=== PATIENT | female | born 1940 | race Caucasian/White ===

== ENCOUNTER 2016-05-04 21:35 | Inpatient (IN) | payer BC, MEDICARE ==
--- NOTE | 2016-05-04 22:06 | ED Physician Chart ---
Chief Complaint/HPI - Patient Information Date Seen:: 05/04/16 Time Seen:: 21:45 Chief Complaint:: syncope History of Present Illness:: while walking in her house felt dizzy, had to hold on to furniture to keep from falling, then fell face down onto the bed. Unconscious but unsure for how long. After awakening took blood pressure as 83/45. Denies chest pain or shortness of breath. Allergies:: Allergies Allergy/AdvReac Type Severity Reaction Status Date / Time No Known Allergies Allergy Verified 05/04/16 21:43 Vitals:: Vital Signs - 8 hr 05/04/16 21:43 Temp 97.5 F HR 59 RR 18 BP 127/35 O2 Sat % 100 Historian:: Patient Review:: Nurse's Note Reviewed Review of Systems - Review of Systems General/Constitutional: No fever, No chills, Weakness Skin: No skin lesions Head: No headache Eyes: No loss of vision ENT: No earache Neck: No neck pain Cardio Vascular: No chest pain Pulmonary: No SOB GI: No nausea, No vomiting G/U: No dysuria Musculoskeletal: No bone or joint pain, No back pain, No muscle pain Endocrine: No polyuria, No polydipsia Psychiatric: No prior psych history Hematopoietic: No bruising Allergic/Immuno: No urticaria Neurological: Syncope, Dizziness Past Medical History - Past Medical History Past Medical History: DM, Other (cardiac arrhythmia) Family History: Heart disease, HTN Social History: Non Smoker, No Alcohol Surgical History: other (right mastectomy; cataract surgery right eye) Psychiatricy History: None Medication: Reviewed Family Medical History - Family Member Mother Hx Family Hypertension: Yes Physical Exam - Physical Examination General/Constitutional: Well-developed, well-nourished, Alert Head: Atraumatic Eyes: Lids, conjuctiva normal Other Eyes comments:: right eye s/p cataract surgery Skin: Nl inspection, No rash ENMT: External ears, nose nl, TM canals nl, Nasal exam nl, Lips, teeth, gums nl , Oropharynx nl, Tonsils nl Neck: No nuchal rigidity Respiratory: Nl effort/Exclusion, Clear to Auscultation, No Wheeze/Rhonchi/Rales Cardio Vascular: RRR, No murmur, gallop, rubs, NL S1 S2 GI: No tenderness/rebounding/guarding, No organomegaly, No hernia, Normal BS's, Nondistended, No mass/bruits : No CVA tenderness Extremities: Normal digits & nails Neuro/Psych: Alert/oriented, No focal deficits Misc: Normal back Labs/Radiology/EKG Results - Lab Results Comments:: Laboratory Results - last 24 hr 05/04/16 05/04/16 05/04/16 22:15 22:15 22:15 WBC 3.3 L RBC 3.70 L Hgb 10.9 L Hct 32.5 L MCV 87.7 MCH 29.4 MCHC Differential 33.6 RDW 12.8 Plt Count 97 L MPV 9.6 Neutrophils % 64.5 Lymphocytes % 22.1 Monocytes % 10.3 H Eosinophils % 2.6 Basophils % 0.5 Sodium 135 L Potassium 4.0 Chloride 99 Carbon Dioxide 27.1 Anion Gap 12.9 BUN 59 H Creatinine 1.3 H Est GFR ( Amer) TNP Est GFR (Non-Af Amer) TNP BUN/Creatinine Ratio 45.4 Glucose 234 H Calcium 9.5 Troponin I 0.02 B-Natriuretic Peptide 203.0 H - Radiology Results Results: CXR: calcification of aortic arch - EKG Interpretations Rhythm: ventricular pacemaker Rate: 61 Comments:: PAC ED Septic Shock - . Is Septic Shock (SBP<90, OR Lactate>4 mmol\L) present?: No - <6hrs of presentation: Vital Signs: Vital Signs - 8 hr 05/04/16 21:43 Temp 97.5 F HR 59 RR 18 BP 127/35 O2 Sat % 100 Reassessment (Disposition) - Reassessment Reassessment Condition:: Improved - Diagnosis Diagnosis:: syncope; dehydration; pancytopenia - Patient Disposition Admitted to:: Telemetry Admitting Medical Physician:: Paul Douglas Admitting Psych Physician:: Paul Douglas Condition at Disposition:: Stable, Improved
[2016-05-04 22:31] LABS: % BASOPHILS 0.5 % (0.0-2.0); % EOSINOPHILS 2.6 % (0.0-5.0); % LYMPHOCYTES 22.1 % (20.0-50.0); % MONOCYTES 10.3 % (2.0-10.0); % NEUTROPHILS 64.5 % (40.0-80.0); HEMATOCRIT 32.5 % (35.0-45.0); HEMOGLOBIN 10.9 gm/dL (11.7-16.1); MEAN CELL VOLUME 87.7 fl (81-100); MEAN CORPUSCULAR HEMOGLOBIN 29.4 pg (27.0-31.0); MEAN CORPUSCULAR HGB CONC 33.6 pg (28.0-36.0); MEAN PLATELET VOLUME 9.6 fl; NEUTROPHILE ABSOLUTE 2.2 Th/cmm (1.8-8.0); PLATELET COUNT 97 Th/cmm (150-400); RED CELL DISTRIBUTION WIDTH 12.8 % (11.5-20.0); WHITE BLOOD COUNT 3.3 Th/cmm (4.8-10.8)
[2016-05-04 22:44] LABS: ANION GAP 12.9 (7.0-16.0); BUN - UREA NITROGEN 59 mg/dL (7-25); BUN/CREATININE RATIO 45.4; CALCIUM SERUM 9.5 mg/dL (8.6-10.3); CARBON DIOXIDE 27.1 mEq/L (21.0-31.0); CHLORIDE 99 mEq/L (98-107); CREATININE - SERUM 1.3 mg/dL (0.6-1.2); GLUCOSE 234 mg/dL (70-105); SODIUM SERUM 135 mEq/L (136-145)
[2016-05-04] MEDS ORDERED: Sodium Chloride 0.9% 1,000 ML IV ONE (23:28)
[2016-05-04 23:32] LABS: URINE BILIRUBIN NEGATIVE (NEGATIVE); URINE BLOOD NEGATIVE (NEGATIVE); URINE COLOR YELLOW; URINE GLUCOSE (UA) NEGATIVE (NEGATIVE); URINE KETONE NEGATIVE (NEGATIVE); URINE PH 5.5; URINE PROTEIN NEGATIVE (NEGATIVE)
[2016-05-04 23:33] LABS: URINE BACTERIA MODERATE /hpf (NONE SEEN); URINE EPITHELIAL CELLS FEW /lpf (FEW); URINE RBC NONE SEEN /hpf (0-5)
[2016-05-05] MEDS: Sodium Chloride 0.9% 1,000 ML IV SCH ×2 (01:12→20:06)
[2016-05-05] MEDS: INSULIN ASPART SLIDING SCALE 100 UNITS/ML UNIT SUBQ SCH ×4 (06:54→20:41)
[2016-05-05 07:34] LABS: % EOSINOPHILS 1.7 % (0.0-5.0); % LYMPHOCYTES 14.9 % (20.0-50.0); % MONOCYTES 6.1 % (2.0-10.0); % NEUTROPHILS 77.3 % (40.0-80.0); HEMATOCRIT 34.2 % (35.0-45.0); HEMOGLOBIN 11.5 gm/dL (11.7-16.1); MEAN CELL VOLUME 86.6 fl (81-100); MEAN CORPUSCULAR HEMOGLOBIN 29.1 pg (27.0-31.0); MEAN CORPUSCULAR HGB CONC 33.5 pg (28.0-36.0); MEAN PLATELET VOLUME 10.6 fl; NEUTROPHILE ABSOLUTE 4.1 Th/cmm (1.8-8.0); PLATELET COUNT 93 Th/cmm (150-400); RED BLOOD COUNT 3.95 Mil/cmm (3.80-5.20); RED CELL DISTRIBUTION WIDTH 12.9 % (11.5-20.0)
[2016-05-05 07:37] LABS: ANION GAP 11.6 (7.0-16.0); BUN - UREA NITROGEN 53 mg/dL (7-25); CALCIUM SERUM 9.1 mg/dL (8.6-10.3); CARBON DIOXIDE 24.1 mEq/L (21.0-31.0); CHLORIDE 107 mEq/L (98-107); GLUCOSE 120 mg/dL (70-105); POTASSIUM SERUM 3.7 mEq/L (3.5-5.1); SODIUM SERUM 139 mEq/L (136-145); WHITE BLOOD COUNT 5.3 Th/cmm (4.8-10.8)
[2016-05-05] MEDS ORDERED: Morphine Sulfate 2 mg/mL 1mL Syr IVP PRN (08:52)
[2016-05-05] MEDS ORDERED: Non-Formulary Item 1 EA (Pravastatin Sodium [Pravastatin*] 40 MG) PO SCH (09:00)
[2016-05-05] MEDS ORDERED: Non-Formulary Item 1 EA (Losartan Potassium [Cozaar] 100 MG) PO SCH (09:00)
[2016-05-05] MEDS ORDERED: AMLODIPINE BESYLATE 2.5 MG PO SCH (09:00)
--- NOTE | 2016-05-05 09:46 | Diagnostic Imaging Report ---
CHEST X-RAY: AP view INDICATION: Syncope COMPARISON: None FINDINGS: Left chest wall pacemaker apparatus is noted with leads in the region of right atrium. Chronic changes are seen with no focal consolidation or pleural effusions. There may be right basal pleural thickening. Heart size is normal. Atherosclerosis is noted. Degenerative changes of the spine and shoulders are noted. There is evidence of old trauma to the left humerus. IMPRESSION: Chronic lung changes with no focal consolidation identified. Pacemaker noted. Atherosclerotic vascular disease.
--- NOTE | 2016-05-05 10:36 | History & Physical ---
CHIEF COMPLAINT: Syncope and fall. HISTORY OF PRESENT ILLNESS: The patient is a pleasant 75-year-old female who lives at home with her . Her is in hospice and is unable to take care of her. She has been experiencing worsening weakness. She has history of pacemaker and AFib as well. She is on warfarin. She has been experiencing severe dizziness and she fainted yesterday while she was in bed and she states she fell down and hit her face on the floor. She denies any chest pain, nausea, vomiting or diarrhea. She has been experiencing left knee pain as well from the fall. PAST MEDICAL HISTORY: Significant for diabetes, AFib, hypertension, breast cancer, status post right-sided mastectomy years ago per patient. SOCIAL HISTORY: She is retired. No history of alcohol, tobacco, or drug abuse. FAMILY HISTORY: Noncontributory. ALLERGIES: No known drug allergies. PAST SURGICAL HISTORY: She has had right-sided mastectomy. MEDICATIONS: All medications reviewed and reconciled. REVIEW OF SYSTEMS: GENERAL: Positive recent fatigue and worsening dizziness. HEENT: No recent head trauma or change in vision, taste, hearing, or smell. When she fell, she hit her face. She denies any head trauma. NEUROLOGIC: Positive for recent loss of consciousness when she fell, she had a syncopal episode. NECK: No recent tracheal deviation or JVD. CARDIOVASCULAR: She has history of AFib and hypertension. ABDOMEN: No recent pain or distention. GASTROINTESTINAL: Denies any nausea, vomiting or diarrhea. SKIN: No recent rashes. PSYCHIATRIC: No history of psychosis or hallucinations. ENDOCRINE: She has a history of diabetes. PHYSICAL EXAMINATION: VITAL SIGNS: Temperature is 97.5 degrees, heart rate is 65, respirations 18, blood pressure 135/58. Currently, no pain. O2 saturations 95% on room air. GENERAL: No acute distress. She is anxious. She feels weak. She also has pain in the left knee HEENT: Normocephalic, atraumatic. Pupils are reactive to light. The patient has some redness from the fall. NECK: Trachea is midline. No JVD. CARDIOVASCULAR: Regular rate and rhythm, but she has been going in and out of AFib on telemetry. ABDOMEN: Nontender, nondistended. SKIN: No rash. EXTREMITIES: 1+ edema in lower extremities. MUSCULOSKELETAL: She has unsteady gait. She also has intractable left knee pain. RESPIRATORY: Decreased breath sounds bilaterally. NEUROLOGIC: No evidence of acute stroke or seizure activity. LABORATORY DATA: Chest x-ray and bilateral carotid ultrasound have been ordered and are pending. White count is 3.3, hemoglobin is 10.9, and platelet count is 97,000. Sodium 135, potassium 4.0, chloride 99, bicarbonate 27.1, BUN ____, creatinine 1.3, glucose 234. Hemoglobin A1c 6.6. BNP is 203. UA is positive for moderate bacteria, leukocyte esterase is positive and wbc's are positive as well. ASSESSMENT: 1. Syncope. 2. Pancytopenia. 3. Urinary tract infection. 4. Diabetes mellitus, out of control. 5. Acute kidney injury. 6. Vasomotor nephropathy. 7. Atrial fibrillation. 8. Status post fall. 9. Unsteady gait. PLAN: The patient is being monitored in telemetry. Warfarin will be continued per Pharmacy. We will follow up on the PT and INR. Dr. Mahmood has been consulted for Cardiology. I will start her on Rocephin 1 g IV daily for UTI. Follow up on the cultures. I have ordered x-ray of the left knee. Continue fingerstick blood sugars and regular insulin sliding scale. JOB# [id number]
[2016-05-05] MEDS ORDERED: cefTRIAXone 1 GM in Sodium Chloride 0.9% 50 ML IV SCH (11:00)
[2016-05-05] MEDS: Atorvastatin Calcium 10 MG TAB PO SCH (11:03)
[2016-05-05] MEDS: Aspirin 81mg Chewable Tab PO SCH ×2 (11:04→11:16)
--- NOTE | 2016-05-05 11:17 | Diagnostic Imaging Report ---
Right knee 3 views Indication: pain Comparison: none Findings: Moderate degenerative changes are noted. Chondrocalcinosis is noted. No evidence of an acute fracture or joint effusion. Atherosclerotic vascular disease is noted. No focal soft tissue swelling. Impression: No evidence of an acute fracture. Moderate degenerative changes. Chondrocalcinosis. Atherosclerotic vascular disease. In the setting of trauma, if clinical symptoms persist and there is continued concern for an occult fracture, follow up exams in 5-7 days is suggested.
[2016-05-05 12:04] LABS: INR 3.05 (0.5-1.4); PROTHROMBIN TIME (TEST) 32.5 SECONDS (9.5-11.5)
--- NOTE | 2016-05-05 14:09 | Diagnostic Imaging Report ---
Carotid ultrasound HISTORY: Syncope COMPARISON: None Technique: Longitudinal and transverse sonographic sector images of the carotid arteries were obtained with doppler analysis. FINDINGS: Exam of the right-sided demonstrates intimal thickening and moderate atherosclerotic vascular disease. Exam of the left side demonstrates intimal thickening and moderate atherosclerotic vascular disease. The velocity and velocity ratios are within normal limits. Antegrade vertebral artery flow is demonstrated bilaterally. IMPRESSION: Moderate generalized atherosclerotic vascular disease. No evidence of hemodynamically significant stenosis.
--- NOTE | 2016-05-05 16:11 | Diagnostic Imaging Report ---
Head CT without intravenous contrast Indication: Syncope Comparison: None Technique: Axial images were obtained from the vertex to the skull base without IV contrast. Coronal reconstructions were made. Total DLP: [id number], [id number] FINDINGS: Images of the brain obtained without contrast demonstrate no acute hemorrhage. Cerebellar and cerebral atrophy is noted. Atherosclerosis is noted. No mass lesions identified. The ventricles and basal cisterns are patent. The pringle-white matter differentiation is preserved. There is no mass effect or midline shift. No skull fractures identified. No soft tissue swelling. The paranasal sinuses are clear. IMPRESSION: No CT evidence of an acute intracranial abnormality Cerebellar and cerebral atrophy Mild atherosclerosis.
[2016-05-05 18:25] VITALS: BP 110/53
--- NOTE | 2016-05-05 21:07 | Admit Criteria Form ---
Admit Criteria Forms - Admit Criteria Diagnosis: URINARY COMPLICATIONS Clinical Indications for Inpatient Care (Place 'X' for any and all applicable criteria): Ongoing inpatient care may be indicated for urinary complications with ANY ONE of the following: [X ]I. Urinary tract infection requiring inpatient care as indicated by ANY ONE of the following(8)(19)(20): [ ]a) Severe symptoms (eg, high fever, severe pain) [ ]b) Vomiting or dehydration requiring ongoing inpatient care [ X]c) IV antibiotic needs that cannot be managed at lower level of care [ ]d) Hemodynamic instability [ ]e) Obstruction of collecting system by stone or tumor [ ]II. Urinary retention requiring drainage or surgery (3)(4)(5)(17)(18) [ ]III. Renal failure (Use Renal Failure Criteria for further information.) [ ]IV. Oliguria(30) [ ]V. Post obstructive diuresis requiring close monitoring of urine output and intravenous compensation for excessive fluid losses(33) Extended stay beyond goal length of stay for primary condition may be needed until ALL of the following are present(3)(4)(5)(8): [ ]a) Renal function (creatinine) at baseline, or daily decreases in creatinine consistent with renal function return [ ]b) Voiding adequately or with urinary catheter or percutaneous suprapubic tube and management regimen in place that is performable at lower level of care. [ ]c) Urine output adequate [ ]d) Fever absent or resolving [ ]e) Infection absent or treatable at next level of care The original [employer] content created by [employer] has been revised. The portions of the content which have been revised are identified through the use of italic text or in bold, and [facility] has neither reviewed nor approved the modified material. All other unmodified content is copyright [employer] [employer] Please see references footnoted in the original [facility] edition 2016 Admit Criteria Met?: Yes
--- NOTE | 2016-05-06 03:56 | Consultation ---
The patient of Dr. Douglas. HISTORY AND PHYSICAL: This 75-year-old female patient who was at home, had syncopal episode. The patient had a fall in the bed. The patient did not have any injury. The patient had syncopal episode for few seconds. Following this, paramedics were called in and patient came to the Emergency Room. PAST MEDICAL HISTORY: The patient has history of sick sinus syndrome, atrial fibrillation, diabetes mellitus type 2, unsteady gait and osteoporosis. The patient also has right breast cancer with mastectomy. FAMILY HISTORY: Unremarkable. SOCIAL HISTORY: No history of smoking, alcohol abuse. ALLERGIES: No known allergies. PHYSICAL EXAMINATION: VITAL SIGNS: Blood pressure 130/80, pulse 70, respirations 20. HEAD: Normocephalic. No lumps or bumps. EYES: Pupils equal, reactive to light. Fundi show AV nicking, sclerae white, conjunctivae pink. NECK: Carotid 2+. Normal upstroke. JVD flat. Thyroid not palpable. Lymph nodes not palpable. CHEST: Shows ____ AP diameter. No kyphosis, scoliosis. LUNGS: Bilateral breath sounds. HEART: PMI fifth intercostal space with lateral to midclavicular line. S1, S2. No S3, S4. S1 irregular. Systolic murmur, grade 2/6, lower left sternal border without radiation. ABDOMEN: Soft. Liver, spleen not palpable. No organomegaly. Bowel sounds active. NEUROLOGIC: Unremarkable. EXTREMITIES: Peripheral pulses 2+. No pedal edema. CLINICAL IMPRESSION: 1.Syncope. 2.Atrial fibrillation, sick sinus syndrome with pacemaker. 3.Osteoporosis. 4.Prerenal azotemia. 5.Hypertension. 6.Right breast cancer with mastectomy. PLAN: The patient to have carotid duplex study, CAT scan of the brain complain and also Patient to have echocardiogram to evaluate left ventricular function. JOB# [id number]
[2016-05-06 05:57] LABS: % BASOPHILS 0.7 % (0.0-2.0); % EOSINOPHILS 4.5 % (0.0-5.0); % LYMPHOCYTES 12.2 % (20.0-50.0); % MONOCYTES 6.9 % (2.0-10.0); % NEUTROPHILS 75.7 % (40.0-80.0); HEMATOCRIT 35.8 % (35.0-45.0); HEMOGLOBIN 12.1 gm/dL (11.7-16.1); MEAN CELL VOLUME 87.8 fl (81-100); MEAN CORPUSCULAR HEMOGLOBIN 29.6 pg (27.0-31.0); MEAN CORPUSCULAR HGB CONC 33.7 pg (28.0-36.0); MEAN PLATELET VOLUME 10.2 fl; NEUTROPHILE ABSOLUTE 4.6 Th/cmm (1.8-8.0); PLATELET COUNT 98 Th/cmm (150-400); RED BLOOD COUNT 4.08 Mil/cmm (3.80-5.20); RED CELL DISTRIBUTION WIDTH 13.1 % (11.5-20.0)
[2016-05-06 06:09] LABS: ANION GAP 10.3 (7.0-16.0); BUN - UREA NITROGEN 38 mg/dL (7-25); CALCIUM SERUM 9.4 mg/dL (8.6-10.3); CARBON DIOXIDE 27.1 mEq/L (21.0-31.0); CHLORIDE 107 mEq/L (98-107); GLUCOSE 114 mg/dL (70-105); POTASSIUM SERUM 4.4 mEq/L (3.5-5.1); SODIUM SERUM 140 mEq/L (136-145)
[2016-05-06] MEDS: INSULIN ASPART SLIDING SCALE 100 UNITS/ML UNIT SUBQ SCH (06:37)
[2016-05-06] MEDS: Atorvastatin Calcium 10 MG TAB PO SCH (09:26)
[2016-05-06] MEDS: Aspirin 81mg Chewable Tab PO SCH (09:27)
--- NOTE | 2016-05-06 19:57 | Discharge Summary ---
CAUSE OF ADMISSION: The patient is a 75-year-old female who lives at home with her . Her is on hospice and is unable to take care of her. She has been experiencing worsening weakness. She has a history of pacemaker and AFib. She is on warfarin. She has been experiencing severe dizziness and fainted and fell off the bed. She has been experiencing knee pain as well. ADMITTING DIAGNOSES: 1. Syncope. 2. Pancytopenia. 3. Urinary tract infection. 4. Diabetes mellitus, out of control. 5. Acute kidney injury. 6. Vasomotor nephropathy. 7. Atrial fibrillation. 8. Status post fall. 9. Unsteady gait. DISCHARGE DIAGNOSES: As above. SUMMARY OF HOSPITAL COURSE: The patient was monitored on Telemetry. Warfarin was continued per pharmacy's dosing. PT and INR were ordered. Dr. Mahmood was consulted for Cardiology. He had already cleared the patient for discharge. I suggested a intermediate facility, as she is old and unable to take care of herself, but the patient is adamant on going home today. She wants to be at home right away. She is no longer showing any symptoms of UTI. She has already received a couple of doses of Rocephin. X-ray of the left knee was ordered as well. She was placed on fingerstick blood sugars and on a regular insulin sliding scale. PHYSICAL EXAMINATION: VITAL SIGNS: Temperature 98.2 degrees, heart rate is 69, respirations 18, blood pressure 144/86. GENERAL: No pain, in no acute distress, awake, alert. HEENT: Within normal limits. NECK: Trachea is midline. CARDIOVASCULAR: Regular rate and rhythm. SKIN: No rash. EXTREMITIES: No edema. LABORATORY DATA: INR is 3.05. White count is 6, hemoglobin is 12.1, platelet count is 98,000. The white count improved from 3.3 to 6. Platelets improved from 93 to 98,000. Sodium 140, potassium 4.4, chloride 107, bicarbonate 27.1, BUN 38, creatinine is 1, glucose is 114. Also, the patient's knee x-ray on the right side shows no acute fracture. There are DJD changes, which are moderate. Also, CT of the head was done, which did not show any acute abnormalities. PROGNOSIS: Fair. ACTIVITY: As tolerated. DISPOSITION: The patient is being discharged home. I will set up home health, so that she can have PT and rehab. She has a high fall risk. I suggested that she stay, so we can finish the workup and continue PT in-house at least or at least let us get it started, but she is adamant on going home. JOB# [id number]
--- NOTE | 2016-05-07 15:00 | Progress Notes ---
Patient of Dr. Douglas. SUBJECTIVE: This 75-year-old female patient who had syncopal episode. The patient is admitted. The patient had a CAT scan, which was unremarkable. Carotid duplex study showed no evidence of any obstruction. OBJECTIVE: VITAL SIGNS: Blood pressure 132/70, pulse 72, respirations 20. LUNGS: Clear. HEART: Regular rhythm S1, S2. No S3, S4. ABDOMEN: Soft. Echocardiogram also unremarkable. CLINICAL IMPRESSION: Syncope, atrial fibrillation, sick sinus syndrome with pacemaker, osteoporosis, prerenal azotemia, hypertension. The patient is clinically stable. The patient is ambulatory. The patient can be discharged. [facility]# [id number]
== END 2016-05-06 11:30 | disposition short-term general hospital (02) | DRG 689 ==
LOC: ER 21:35 → TELE 23:40
PROVIDERS: ADMIT General Practice; ATTEND General Practice
DX: N39.0 Urinary tract infection, site not specified (principal); N17.0 Acute kidney failure with tubular necrosis; D61.818 Other pancytopenia; E11.65 Type 2 diabetes mellitus with hyperglycemia; I48.91 Unspecified atrial fibrillation; I49.5 Sick sinus syndrome; R55 Syncope and collapse; I10 Essential (primary) hypertension; M81.0 Age-related osteoporosis without current pathological fracture; R26.81 Unsteadiness on feet; Y99.8 Other external cause status; Y92.89 Other specified places as the place of occurrence of the external cause; Y93.89 Activity, other specified; W18.30XA Fall on same level, unspecified, initial encounter; E11.9 Type 2 diabetes mellitus without complications; M85.80 Other specified disorders of bone density and structure, unspecified site; Z79.01 Long term (current) use of anticoagulants; Z95.0 Presence of cardiac pacemaker; Z82.49 Family history of ischemic heart disease and other diseases of the circulatory system; Z98.41 Cataract extraction status, right eye; Z90.11 Acquired absence of right breast and nipple; Z85.3 Personal history of malignant neoplasm of breast
CPT/HCPCS: 36415-UA; 70450-TC; 71010-TC; 73562-TC-RT; 80048-TC; 81001-TC; 82948-90; 83036-90; 83735-TC; 83880-TC; 84484-TC; 85025-TC; 85610-TC; 93005; 93880-TC; J0696; J1815; J7030; X3904; Z7610